=== PATIENT | male | born 1980 | race Caucasian/White ===

== ENCOUNTER → 2016-10-09 | Day surgery (SDC) | payer OTHER ==
[~2016-10-09] MED LIST: SUBOXONE PO
--- NOTE | ~2016-10-09 | OR ---
Unit #: [id number] #: [id number] Patient: NELLA ARRIETA [id number] [address] [address] [id number] MR#: [id number] NAME: NELLA ARRIETA ROOM: Date of Procedure: 10/09/2016 Admission Date: 10/09/2016 Surgeon: Jaren Che M.D. : 1980 Attending Physician: Jaren Che M.D. Primary Care Physician: Estrellita Casey M.D. OPERATIVE REPORT PREOPERATIVE DIAGNOSIS Multiple condylomata of penis, scrotum, and pubis. POSTOPERATIVE DIAGNOSIS Multiple condylomata of penis, scrotum, and pubis. PROCEDURE PERFORMED CO2 laser of numerous condylomata of genitals. ANESTHESIA General with local supplementation. INDICATIONS FOR PROCEDURE This is a 36-year-old man, who presented with complaints of condyloma on the genitals for over 1 year; has numerous lesions of the shaft of penis, pubis, and scattered lesions on the scrotum up to 5 or 6 mm, many of them only 1 to 2. He presents for the above procedure. DESCRIPTION OF PROCEDURE After arranging procedure under local, he elected general anesthesia, and after this was performed, the genitals were inspected, clipped around the lesions, and wide prep and drape performed with Betadine. The Betadine was then removed to improve visibility and with wet towels involved in the draping, the laser was initiated at power of 4 sandoval lasering down the larger lesions and then the smaller lesions flush with the dermis. The laser was then placed on standby and all of the lesions manually debrided with a moist gauze on the finger tip to remove eschar. The lesions were then all re-treated at 1 watt to ensure hemostasis and flight margin to the treatment. Triple antibiotic ointment and a loose gauze were then applied. Follow up in 2 to 4 weeks is recommended. Dictated by... Jaren Che M.D. NAA/jadiel TD: 10/09/2016 14:07 JOB #: [id number] Unit #: [id number] #: [id number] Patient: NELLA ARRIETA OPERATIVE REPORT Page 1 of 1 X Jaren Che MD PROCEDURE OPERATIVE NOTE
== END | disposition home or self-care (01) ==
LOC: CSUR 09:45
DX: A63.0 Anogenital (venereal) warts (principal); M19.90 Unspecified osteoarthritis, unspecified site; F17.210 Nicotine dependence, cigarettes, uncomplicated; Z88.5 Allergy status to narcotic agent; Z79.899 Other long term (current) drug therapy; Z87.442 Personal history of urinary calculi; Z98.890 Other specified postprocedural states
CPT/HCPCS: J2250; J2405; J3010